=== PATIENT | female | born 2000 | race Caucasian/White ===

== ENCOUNTER 2020-03-17 08:41 | Emergency (ER) | payer SELFPAY ==
[2020-03-17] MEDS ORDERED: AZITHROMYCIN 250 MG TAB ONE ×2 (09:52→09:53)
[2020-03-17] MEDS ORDERED: LIDOCAINE 1% MPF 5 ML VIAL ONE (09:52)
[2020-03-17] MEDS ORDERED: CEFTRIAXONE 250 MG/VIAL ONE (09:52)
[2020-03-17 09:53] LABS: Urine Blood NEGATIVE (NEG); Urine Glucose NEGATIVE (NEG); Urine Protein 1+ (NEG); Urine pH 8.5 (5.0-7.0)
--- NOTE | 2020-03-17 10:21 | ER ---
Nurse's Notes [facility] Name: Christine Montalvo Age: 19 yrs Sex: Female : 2000 Arrival Date: 03/17/2020 Time: 08:45 Bed 6 Private MD: Diagnosis: Herpesviral infection, unspecified;Sexually transmitted chlamydial infection of other sites Presentation: 03/17 09:09 Chief complaint: Patient states: HSV outbreak and ran out of meds. Coronavirus screen: iw At this time, the client does not indicate any symptoms associated with coronavirus-19. Ebola Screen: Patient negative for fever greater than or equal to 101.5 degrees Fahrenheit, and additional compatible Ebola Virus Disease symptoms Patient denies exposure to infectious person. Patient denies travel to an Ebola-affected area in the 21 days before illness onset. No symptoms or risks identified at this time. Initial Sepsis Screen: Does the patient meet any 2 criteria? No. Patient's initial sepsis screen is negative. Does the patient have a suspected source of infection? No. Patient's initial sepsis screen is negative. Risk Assessment: Do you want to hurt yourself or someone else? Patient reports no desire to harm self or others. 09:09 Method Of Arrival: Ambulatory iw 09:09 Acuity: VINICIO 4 iw 09:15 Onset of symptoms was March 17, 2020. iw Triage Assessment: 09:40 General: Behavior is calm. iw 10:33 General: Appears in no apparent distress. 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 - Social history:: Smoking status: . Screenin:13 Abuse screen: Denies threats or abuse. Denies injuries from another. Nutritional iw screening: No deficits noted. Tuberculosis screening: No symptoms or risk factors identified. Fall Risk None identified. Assessment: 09:45 General: Appears in no apparent distress. Behavior is calm, cooperative. Pain: iw Complains of pain in groin. Neuro: Level of Consciousness is awake, alert, obeys commands, Oriented to person, place, time, situation, Moves all extremities. Full function. Cardiovascular: Respiratory: Respiratory effort is even, unlabored, Respiratory pattern is regular. Derm: Skin is intact, is healthy with good turgor. Musculoskeletal: Range of motion: intact in all extremities. 10:13 Reassessment: Patient appears in no apparent distress at this time. Patient and/or iw family updated on plan of care and expected duration. Pain level reassessed. Patient is alert, oriented x 3, equal unlabored respirations, skin warm/dry/pink. waiting for urine micro and wet prep results. Vital Signs: 09:36 BP 107 / 84; Pulse 86; Resp 16; Temp 98.2; Pulse Ox 98% on R/A; iw ED Course: 08:45 Patient arrived in ED. as 08:50 Andrews Perla PA is PHCP. jr8 08:50 Lopez Klein MD is Attending Physician. jr8 09:10 Triage completed. iw 09:35 Mariia Max, RN is Primary Nurse. iw 09:35 Wet Prep Sent. iw 09:35 GC (GONORR/CHLAMYDIA) Probe Sent. iw 09:36 Assist provider with pelvic exam: Set up pelvic tray. Performed by Andrews ESTRELLA iw Specimens sent to lab. 09:36 Arm band placed on. iw 09:45 Patient has correct armband on for positive identification. iw 10:32 Patient did not have IV access during this emergency room visit. iw Administered Medications: 09:45 Drug: Rocephin (cefTRIAXone) 250 mg Route: IM; Site: right deltoid; iw 10:30 Follow up: Response: No adverse reaction iw 09:45 Drug: Zithromax 1 grams Route: PO; iw 10:30 Follow up: Response: No adverse reaction iw 10:34 Drug: Valtrex 1000 mg Route: PO; iw 10:35 Follow up: Response: No adverse reaction iw Outcome: 10:20 Discharge ordered by . jr8 10:33 Discharged to home ambulatory. iw 10:33 Condition: good 10:33 Discharge instructions given to patient, Instructed on discharge instructions, follow up and referral plans. Demonstrated understanding of instructions, follow-up care, medications, Prescriptions given X 1. 10:34 Patient left the ED. iw Signatures: Marian Earl as Mariia Max, RN RN iw Andrews Perla PA PA jrThor
--- NOTE | 2020-03-17 10:21 | EDPHYS ---
Physician Documentation [facility] Name: Christine Montalvo Age: 19 yrs Sex: Female : 2000 Arrival Date: 03/17/2020 Time: 08:45 Bed 6 Private MD: ED Physician Lopez Klein HPI: 03/17 10:16 This 19 yrs old Female presents to ER via Ambulatory with complaints of jr8 Vaginal Problem. 10:16 The patient presents with pelvic pain, vaginal discharge. Onset: The symptoms/episode jr8 began/occurred gradually, 2 day(s) ago. Modifying factors: The symptoms are alleviated by nothing, the symptoms are aggravated by movement. Associated signs and symptoms: The patient has no apparent associated signs or symptoms. Severity of symptoms: At their worst the symptoms were mild, in the emergency department the symptoms are unchanged. It is unknown whether or not the patient has had similar symptoms in the past. The patient has not recently seen a physician. Patient stated that she has history of HSV. Has been out of her meds and has been stressed as of lately. Stated that she started to break out. More painful then normal. Also noted slight discharge this morning . 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 - Social history:: Smoking status: . ROS: 10:16 Eyes: Negative for injury, pain, redness, and discharge, ENT: Negative for injury, jr8 pain, and discharge, Neck: Negative for injury, pain, and swelling, Cardiovascular: Negative for chest pain, palpitations, and edema, Respiratory: Negative for shortness of breath, cough, wheezing, and pleuritic chest pain, Abdomen/GI: Negative for abdominal pain, nausea, vomiting, diarrhea, and constipation, Back: Negative for injury and pain, MS/Extremity: Negative for injury and deformity, Skin: Negative for injury, rash, and discoloration, Neuro: Negative for headache, weakness, numbness, tingling, and seizure. 10:16 : Positive for pelvic pain, vaginal discharge, Negative for urinary symptoms. Exam: 10:16 Constitutional: This is a well developed, well nourished patient who is awake, alert, jr8 and in no acute distress. Cardiovascular: Regular rate and rhythm with a normal S1 and S2. No gallops, murmurs, or rubs. Normal PMI, no JVD. No pulse deficits. Respiratory: Lungs have equal breath sounds bilaterally, clear to auscultation and percussion. No rales, rhonchi or wheezes noted. No increased work of breathing, no retractions or nasal flaring. Abdomen/GI: Soft, non-tender, with normal bowel sounds. No distension or tympany. No guarding or rebound. No evidence of tenderness throughout. Skin: Warm, dry with normal turgor. Normal color with no rashes, no lesions, and no evidence of cellulitis. MS/ Extremity: Pulses equal, no cyanosis. Neurovascular intact. Full, normal range of motion. Neuro: Awake and alert, GCS 15, oriented to person, place, time, and situation. Cranial nerves II-XII grossly intact. Motor strength 5/5 in all extremities. Sensory grossly intact. Cerebellar exam normal. Normal gait. 10:16 : CVA tenderness, is absent, Pelvic Exam: External exam: herpes lesions noted, Speculum exam: no cervicitis, os that is closed, no tissue in cervix is seen, discharge, white, the nurse was present for the exam. Vital Signs: 09:36 BP 107 / 84; Pulse 86; Resp 16; Temp 98.2; Pulse Ox 98% on R/A; iw MDM: 08:50 Patient medically screened. [facility] 10:16 Data reviewed: vital signs, nurses notes, and as a result, I will discharge patient. [facility] Data interpreted: Pulse oximetry: on room air is 98 %. Interpretation: normal. Counseling: I had a detailed discussion with the patient and/or guardian regarding: the historical points, exam findings, and any diagnostic results supporting the discharge/admit diagnosis, lab results, the need for outpatient follow up, a family practitioner, to return to the emergency department if symptoms worsen or persist or if there are any questions or concerns that arise at home. 03/17 09:29 Order name: GC (GONORR/CHLAMYDIA) Probe [facility] 03/17 09:29 Order name: Wet Prep [facility] 03/17 09:29 Order name: Urine Dipstick--Ancillary (enter results) eb 03/17 09:29 Order name: Urine --Ancillary (enter results) eb 03/17 09:38 Order name: Urine Microscopic Only [facility] 03/17 09:54 Order name: Urine --Ancillary; Complete Time: 09:58 EDMS 03/17 09:29 Order name: Urine Test (obtain specimen); Complete Time: 09:35 8 03/17 09:29 Order name: Urine Dipstick-Ancillary (obtain specimen); Complete Time: 09:35 8 03/17 09:54 Order name: Urine Dipstick-Ancillary; Complete Time: 09:58 EDMS 03/17 10:14 Order name: Wet Prep; Complete Time: 10:16 EDMS Administered Medications: 09:45 Drug: Rocephin (cefTRIAXone) 250 mg Route: IM; Site: right deltoid; iw 10:30 Follow up: Response: No adverse reaction iw 09:45 Drug: Zithromax 1 grams Route: PO; iw 10:30 Follow up: Response: No adverse reaction iw 10:34 Drug: Valtrex 1000 mg Route: PO; iw 10:35 Follow up: Response: No adverse reaction iw Disposition: 11:35 Co-signature as Attending Physician, Lopez Klein MD. rn Disposition: 03/17/20 10:20 Discharged to Home. Impression: Herpesviral infection, unspecified, Sexually transmitted chlamydial infection of other sites. - Condition is Stable. - Discharge Instructions: Chlamydia, Female, Genital Herpes, Sexually Transmitted Disease. - Prescriptions for Valtrex 1 g Oral Tablet - take 1 tablet by ORAL route every 12 hours for 7 days; 14 tablet. - Medication Reconciliation Form, Thank You Letter, Antibiotic Education, Prescription Opioid Use form. - Follow up: Private Physician; When: As needed; Reason: Recheck today's complaints, Continuance of care, Re-evaluation by your physician. - Problem is new. - Symptoms have improved. Signatures: Dispatcher [employer] Mariia Rizzo RN RN iw Nieto, Roman, MD MD rn Roszak, Josh, PA PA jr8 Corrections: (The following items were deleted from the chart) 10:34 10:20 03/17/2020 10:20 Discharged to Home. Impression: Herpesviral infection, iw unspecified; Sexually transmitted chlamydial infection of other sites. Condition is Stable. Forms are Medication Reconciliation Form, Thank You Letter, Antibiotic Education, Prescription Opioid Use. Follow up: Private Physician; When: As needed; Reason: Recheck today's complaints, Continuance of care, Re-evaluation by your physician. Problem is new. Symptoms have improved. jr8
[2020-03-17 10:35] LABS: Urine Bacteria <20 /HPF (<20); Urine Culture Reflex Order NOT NEEDED; Urine RBC NONE SEEN /HPF (NONE SEEN)
[2020-03-17 10:40] VITALS: BP 107/84; TEMP 98.2; O2SAT 98
[2020-03-17] MEDS ORDERED: VALACYCLOVIR 500 MG TAB ONE (10:42)
== END 2020-03-17 10:34 | disposition home or self-care (01) ==
LOC: ER 08:41
DX: B00.9 Herpesviral infection, unspecified (principal); A56.8 Sexually transmitted chlamydial infection of other sites
CPT/HCPCS: 81003; 81015; 81025; 87210; 87490; 87590; 96372; 99284; J0696

== ENCOUNTER 2020-03-26 16:03 | Emergency (ER) | payer SELFPAY ==
--- OUTSIDE RECORDS SUMMARY | 2020-03-26 16:06 | XMS REPORT | Continuity of Care Document ---
:2000 Author Organization [employer] Care Team Providers Name Role Phone [employer] Unavailable Un available Problems Problem Status Onset Classification Date Comments Sourc e Date Reported Suicide 09/23/2019 The attempt, [address] [place] initial encounter OD, SI Active The [place] [address] DEHYDRATION Active [address] Medications Medication Details Route Status Patient Ordering Order Source Instructions Provider Date Sodium 1,000 mL, Inactive MH The Chloride 0.9% 1000 020 [place] ([place]) IV ml/hr, Infuse Over: 1 hr, Route: IV, 1,000, Drug form: INJ, ONCE, Priority: STAT, Dosing Weight 50 kg, Start date: 09/20/19 19:08:00 [employer]UMAN [employer]OURCES ADMIN, Stop date: 09/20/19 19:08:00 HUMAN RESOURCES ADMIN, 0 Allergies, Adverse Reactions, Alerts Substance Category Reaction Severity Reaction Status Date Comments S ource type Reported No Known Assertion Drug MH Th e Medication allergy [place] [facility] Allergies Immunizations No Data Provided for This Section Results Order Name Results Value Reference Date Interpretation Comments Selina rce Range DRUG SCREEN U Amph Scr Negative Negative 09/21 MH The *NA* [place] (09/20/19 8:42 PM) DRUG SCREEN U Lupe Scr Negative Negative 09/21 MH The *NA* [place] (09/20/19 8:42 PM) DRUG SCREEN U Benzodiaz Positive Negative 09/21 MH The Scr *ABN* [place] (09/20/19 8:42 PM) DRUG SCREEN U Cocaine Positive Negative 09/21 MH The Scr *ABN* [place] (09/20/19 8:42 PM) DRUG SCREEN U Cannab Scr Positive Negative 09/21 MH Th e *ABN* [place] (09/20/19 8:42 PM) DRUG SCREEN U Opiate Scr Negative Negative 09/21 MH Th e *NA* [place] (09/20/19 8:42 PM) DRUG SCREEN U Negative Negative 09/21 The Phencyclidin *NA* /2019 [place] e Scr (09/20/19 8:42 PM) DRUG SCREEN UDS Note See Note 09/21 MH The (09/20/19 8:42 PM) [facility] nds URINE AND UA Turbidity Clear Clear 09/21 The STOOL (09/20/19 8:42 PM) /2019 [facility] nds URINE AND UA Spec Grav 1.017 <=1.030 09/21 The STOOL /[place] URINE AND UA pH 6.0 5.0 - 8.0 09/21 The STOOL /2019[place] URINE AND UA Protein Negative Negative 09/21 The STOOL mg/dL mg/dL [place] URINE AND UA Glucose Negative Negative 09/21 The STOOL mg/dL mg/dL lands URINE AND UA Ketones Negative Negative 09/21 The STOOL mg/dL mg/dL [place] URINE AND UA Bili Negative Negative 09/21 The STOOL *NA* /2019 [place] (09/20/19 8:42 PM) URINE AND UA Blood Negative Negative 09/21 The STOOL (09/20/19 8:42 PM) /2019 [facility] nds URINE AND UA Nitrite Negative Negative 09/21 The STOOL (09/20/19 8:42 PM) /2019 [facility] nds URINE AND UA Leuk Est Negative Negative 09/21 The STOOL (09/20/19 8:42 PM) /2019 [facility] nds URINE AND UA Sq Epi Few /LPF Few /LPF 09/21 The STOOL [place] URINE AND UA WBC 1 0 - 5 09/21 The STOOL /2019 [place] URINE AND UA Mucus Few /LPF None Seen 09/21 The STOOL /LPF /[place] URINE AND UA Color YELLOW 09/21 The STOOL [place] URINE AND UA <=1.0 0.1 - 1.0 09/21 MH The STOOL Urobilinogen mg/dL [place] CHEM PANEL Glucose Lvl 86 70 - 99 09/21 The [place] CHEM PANEL BUN 11 7 - 22 09/21 The [place] CHEM PANEL Creatinine 1.06 0.50 - 09/21 MH The Lvl 1.40 /2019 [facility] CHEM PANEL Sodium Lvl 140 135 - 145 02/12 The [facility] CHEM PANEL Potassium 3.5 3.5 - 5.1 02/12 MH The Lvl /2019 [facility] CHEM PANEL Chloride Lvl 107 95 - 109 02/12 The /2019 [place] CHEM PANEL CO2 29 24 - 32 02/12 The /2019 [facility] CHEM PANEL Calcium Lvl 9.3 8.5 - 10.5 02/12 The [facility] CHEM PANEL Total 8.8 6.4 - 8.4 02/12 The Protein /2019 [facility] CHEM PANEL Albumin Lvl 5.0 3.5 - 5.0 02/12 MH The [facility] CHEM PANEL ALT 17 0 - 65 02/12 The [facility] CHEM PANEL AST 17 0 - 37 02/12 The [facility] CHEM PANEL Alk Phos 80 39 - 136 02/12 MH The [facility] CHEM PANEL Bili Total 0.7 0.2 - 1.3 02/12 The [place] CHEM PANEL AGAP 7.5 10.0 - 02/12 The 20.0 [facility] CHEM PANEL B/C Ratio 10 6 - 25 02/12 MH The [facility] CHEM PANEL Globulin 3.8 2.7 - 4.2 02/12 MH The [facility] CHEM PANEL A/G Ratio 1.3 0.7 - 1.6 02/12 MH The [facility] CHEM PANEL eGFR 76 02/12 [facility] The Comment: [place] eGFR is calculated using the CKD-EPI formula. In most young, healthy individuals the eGFR will be >90 mL/min/1.73m2 . The eGFR declines with age. An eGFR of 60-89 may be normal in some populations, particularly the elderly, for whom the CKD-EPI formula has not been extensively validated. Use of the eGFR is not recommended in the following populations:< br/>
Nuzhat viduals with unstable creatinine concentration s, including patients and those with serious co-morbid conditions.<b r/>
Patie nts with extremes in muscle mass or diet.

The data above are obtained from the National Kidney Disease Education Program (NKDEP) which additionally recommends that when the eGFR is used in patients with extremes of body mass index for purposes of drug dosing, the eGFR should be multiplied by the estimated BMI. CHEM PANEL Lipase Lvl 87 73 - 393 02/12 MH The [place] CHEM PANEL Bili Direct 0.2 0.0 - 0.3 02/12 MH The [place] HEMATOLOGY WBC 8.1 3.7 - 10.4 02/12 MH The [place] HEMATOLOGY RBC 5.48 4.20 - 02/12 MH The 5.40 /2019 [place] HEMATOLOGY Hgb 16.0 12.0 - 02/12 MH The 16.0 [place] HEMATOLOGY Hct 46.7 36.0 - 02/12 MH The 48.0 [place] HEMATOLOGY MCV 85.2 80.0 - 02/12 MH The 98.0 [place] HEMATOLOGY MCH 29.2 27.0 - 02/12 MH The 31.0 [place] HEMATOLOGY MCHC 34.3 32.0 - 02/12 MH The 36.0 [place] HEMATOLOGY RDW 12.4 11.5 - 02/12 MH The 14.5 [place] HEMATOLOGY Platelet 189 133 - 450 02/12 MH The [place] HEMATOLOGY MPV 10.2 7.4 - 10.4 02/12 MH The [place] HEMATOLOGY Segs 55.8 45.0 - 02/12 MH The 75.0 [place] HEMATOLOGY Lymphocytes 36.8 20.0 - 02/12 MH The 40.0 [place] HEMATOLOGY Monocytes 5.7 2.0 - 12.0 02/12 MH The [place] HEMATOLOGY Eosinophils 1.1 0.0 - 4.0 02/12 MH The [place] HEMATOLOGY Basophils 0.6 0.0 - 1.0 02/12 MH The [place] HEMATOLOGY Neutrophils 4.5 1.5 - 8.1 02/12 MH The # [place] HEMATOLOGY Lymphocytes 3.0 1.0 - 5.5 02/12 MH The # [place] HEMATOLOGY Monocytes # 0.5 0.0 - 0.8 02/12 MH The [place] HEMATOLOGY Eosinophils 0.1 0.0 - 0.5 02/12 MH The # [place] HEMATOLOGY Basophils # 0.1 0.0 - 0.2 02/12 MH The [place] TOXICOLOGY Acetaminoph <2 10 - 20 02/12 MH The Lvl /2019 [place] TOXICOLOGY Ethanol Lvl <3 09/21 [place] TOXICOLOGY Etoh (%) <0.003 09/21 [place] TOXICOLOGY Salicylate 2.1 0.0 - 30.0 09/21 The Lvl [place] URINE CHEM U Preg Negative Negative 02/10 [facility] (02/10/19 5:57 PM) /[facility] Pathology Reports No Data Provided for This Section Diagnostic Reports Report Value Date Source Chest 1view DX PROCEDURE INFORMATION: 09/20/2019 [facility] Exam: XR Chest, 1 View Exam date and time: 09/20/2019 7:35 PM Age: 18 years old Clinical indication: Screening exam; Additional info: /benzo od TECHNIQUE: Imaging protocol: XR of the chest Views: 1 view. COMPARISON: No relevant prior studies available. FINDINGS: Lungs: Clear. No consolidation. Pleural space: No pleural effusion. No pneumotho rax. Heart/Mediastinum: Contours within normal limits . Bones/joints: No acute osseous process. IMPRESSION: No radiographically identified acute cardiopulmo nary findings. Irvin Myers MD On 09/20/2019 20:04:27; [id number] Consultation Notes No Data Provided for This Section Discharge Summaries No Data Provided for This Section History and Physicals No Data Provided for This Section Vital Signs Vital Sign Value Date Comments Source Respitory Rate 29 09/21/2019 The [facility] nds Systolic (mm Hg) 104 09/21/2019 [facility] Diastolic (mm Hg) 63 09/21/2019 [facility] Respitory Rate 18 09/21/2019 The [facility] nds Systolic (mm Hg) 103 09/21/2019 [facility] [place] Diastolic (mm Hg) 74 09/21/2019 [facility] [place] Respitory Rate 19 09/21/2019 [facility] nds Systolic (mm Hg) 100 09/21/2019 [facility] [place] Diastolic (mm Hg) 69 09/21/2019 [facility] Heart Rate 60 09/21/[address] [facility] Heart Rate 70 09/21/[address] [facility] Temperature Oral (F) 98.3 F 09/21/2019 [facility] Height 154.94 cm 09/21/2019 [facility] [place] BMI Calculated 20.83 09/21/2019 [facility] Weight 50 09/21/2019 [facility] Systolic (mm Hg) 105 02/10/2019 [facility] dical [place] Diastolic (mm Hg) 67 02/10/[address] [facility] edical [place] Heart Rate 77 02/10/2019 [facility] Respitory Rate 20 02/10/2019 [facility] Temperature Oral (F) 97.9 F 02/10/2019 [facility] Height 157.48 cm 02/10/2019 [facility] [place] BMI Calculated 20.16 02/10/2019 [facility] kylah [place] Weight 50 02/10/2019 [facility] Respitory Rate 20 02/10/2019 [facility] Systolic (mm Hg) 127 02/10/2019 [facility] [place] Diastolic (mm Hg) 112 02/10/[facility] [place] [facility] 105 [facility]10[facility] Encounters Location Location Encounter Encounter Reason Attending ADM LA Stat us Source Details Type Number For Provider Date Date [facility] [id number] It[facility] 02[facility]10 02/[facility] [id number] Eric 09/21 09/21 [facility] /2019 [facility] Procedures No Data Provided for This Section Assessment and Plan No Data Provided for This Section Plan of Care No Data Provided for This Section Social History Social History Date Source Social History TypeResponse 09/21/2019 [facility] Alcohol Current, Type Beer, Liquor. Frequency: 1-2 times per week. Substance Abuse Use: Current. Type: Marijuana. Recreational Drug Route: In haled. Smoking Status Never smoker; Type: Cigarettes; Exposure to Tobacco Smoke None; Cigarette Smoking Last 365 Days No; Reg Smoking Cessation Counseling No entered on: 09/20/19 Social History TypeResponse 02/10/2019 [facility] Smoking Status Never smoker; Type: Cigarettes; Exposure to Tobacco Smoke None; Cigarette Smoking Last 365 Days No; Reg Smoking Cessation Counseling No entered on: 02/10/19 Family History No Data Provided for This Section Advance Directives No Data Provided for This Section Functional Status No Data Provided for This Section
--- OUTSIDE RECORDS SUMMARY | 2020-03-26 16:07 | XMS REPORT | Continuity of Care Document ---
:2000 Author Organization [facility] t Address [address] [place] [address] Care Team Providers Name Role Phone Lopez Aleman Attending Clinician Roxana Blackman Attending Clinician Payers Payer Name Policy Type Policy Number Effective Date Expiration Date S ource Problems Condition Condition Condition Status Onset Resolution Last Treating Co mments Source Name Details Category Date Date Treatment Clinician Date OD, SI Diagnosis Active 2019-10-04 Mem oria 09-20 20:06:00 l OD, SI 00:00: Maikol 00 Active 09/20/2019 [facility] DEHYDRATIO Diagnosis Active 2019-02-10 Memoria N 02-10 18:26:00 l 00:00: Levasy DEHYDRATIO 00 N Active 02/10/2019 [facility] Suicide Problem 2019-09-23 2019-09-23 Memoria attempt, 2- 22:04:08 22:04:08 l initial Suicide 18:00: Kane n encounter attempt, 00 initial encounter 09/21/2019 09/23/2019 [facility] Syncope Problem 2019-02-12 2019-02-12 Memoria and 02-10 21:55:59 21:55:59 l collapse Syncope 17:00: Nikki nn and 00 collapse 9 02/12/2019 [facility] Allergies, Adverse Reactions, Alerts Allergy Allergy Status Severity Reaction(s) Onset Inactive Treating Comm ents Source Name Type Date Date Clinician No Known DA Active [facility] Allergie 6 Pozo s 00:00: [facility] 00 are Lovely No Known No Known Active Memori a [facility] Medicati l on on Maikol Allergie Allergie s s Social History Social Habit Start Date Stop Date Quantity Comments Source Social History 2019-09-21 2019-09-21 [facility] 01:48:33 01:48:33 Smoking Status Start Date Stop Date Source Social History [facility] Medications Ordered Filled Start Stop Current Ordering Indication Dosage Frequency Signature Comments Components Source Medication Medication Date Date Medication? Clinician (SIG) Name Name Sodium No 1,000 mL, Memori a Chloride 2-12 1000 l 0.9% 01:08: ml/hr, Maikol (Bolus) IV 00 Infuse Over: 1 hr, Route: IV, 1,000, Drug form: INJ, ONCE, Priority: STAT, Dosing Weight 50 kg, Start date: 09/20/19 19:08:00 C.O.D. CLERK, Stop date: 09/20/19 19:08:00 C.O.D. CLERK, 0 Vital Signs Vital Name Observation Time Observation Value Comments Source Respitory Rate 2019-09-21 06:22:00 Memori al Maikol Systolic (mm Hg) 2019-09-21 06:22:00 Pierre rial Levasy Diastolic (mm Hg) 2019-09-21 06:22:00 Mem orial Levasy Respitory Rate 2019-09-21 05:17:00 Memori al Levasy Systolic (mm Hg) 2019-09-21 05:17:00 Pierre rial Maikol Diastolic (mm Hg) 2019-09-21 05:17:00 Mem orial Maikol Respitory Rate 2019-09-21 03:56:00 Memori al Levasy Systolic (mm Hg) 2019-09-21 03:56:00 Pierre rial Levasy Diastolic (mm Hg) 2019-09-21 03:56:00 Mem orial Levasy Heart Rate 2019-09-21 01:46:00 [facility] Maikol Heart Rate 2019-09-21 00:54:00 [facility] Temperature Oral (F) 2019-09-21 00:54:00 98.3 F [facility] Levasy Height 2019-09-21 00:54:00 154.94 cm [facility] Maikol BMI Calculated 2019-09-21 00:54:00 Memori al Maikol Weight 2019-09-21 00:54:00 [facility] [place] Systolic (mm Hg) 2019-02-10 23:49:00 Pierre rial Maikol Diastolic (mm Hg) 2019-02-10 23:49:00 Mem orial Maikol Heart Rate 2019-02-10 23:49:00 [facility] Ma[facility] Respitory Rate 2019-02-10 23:49:00 Memori al Levasy Temperature Oral (F) 2019-02-10 23:49:00 97.9 F [facility] Levasy Height 2019-02-10 22:37:00 157.48 cm [facility] Ma[facility]ol BMI Calculated 2019-02-10 22:37:00 Memori al Levasy Weight 2019-02-10 22:37:00 [facility] Levasy Respitory Rate 2019-02-10 22:37:00 Memori al Levasy Systolic (mm Hg) 2019-02-10 22:37:00 Pierre rial Levasy Diastolic (mm Hg) 2019-02-10 22:37:00 Mem orial Levasy Heart Rate 2019-02-10 22:37:00 [facility] Procedures This patient has no known procedures. Encounters Start End Encounter Admission Attending Care Care Encounter Source Date/Time Date/Time Type Type Clinicians Facility Department ID 2019-09-20 2019-09-21 Outpatient [facility] [place] [id number] 18:50:43 03:04:00 Eric 2019-09-20 2019-09-20 Emergency E [facility] [id number] [facility] 18:50:00 18:50:00 2019-02-10 2019-02-10 Outpatient Yehuda MILENA [facility] [id number] 17:33:26 19:08:00 Itzel Schmidt 00 2019-02-10 2019-02-10 Emergency E [facility] [address] [facility] 17:33:00 17:33:00 Results Test Description Test Time Test Comments Results Result Sour e Comments - XR FOREARM 2 2020-01-13 Patient Name: VIEWS RT 13:08:00 LISET RAZO Unit No: [id number] EXAMS: CPT: [id number] XR [place] [address] [place] [address] RIGHT FOREARM, 2 VIEWS: HISTORY: fall and forearm pain FINDINGS: No bony or joint abnormality study. No acute fracture or dislocation, lytic, or blastic lesion is seen. IMPRESSION: Normal right forearm. at 1308 Reported and signed by: Levi Melchor MD CC: Ines Catherine MD Technologist: Asaf Bautista Time: DAP (Gy m2): Air Kerma (mGy): Trscr Dt/Tm: 01/13/2020 (1308) by:[email or web address] Orig Print D/T: S: 01/13/2020 (5941) BATCH NO: N/A Name: LISET RAZO [facility] Sonam Phys: Ines Marie [address] : 2000 Age: 19 Sex: F [place] Loc: [facility] Exam Date: 01/13/2020 Status: REG ER PH: FAX: PAGE 1 Signed Report DRUG SCREEN 2019-09-21 Negative [facility] 02:42:00 *NA*(09/20/19 8:42 Levasy PM) DRUG SCREEN 2019-09-21 Negative [facility] 02:42:00 *NA*(09/20/19 8:42 Levasy PM) DRUG SCREEN 2019-09-21 Positive [facility] 02:42:00 *ABN*(09/20/19 8:42 Kane n PM) DRUG SCREEN 2019-09-21 Positive [facility] 02:42:00 *ABN*(09/20/19 8:42 Kane n PM) DRUG SCREEN 2019-09-21 Positive [facility] 02:42:00 *ABN*(09/20/19 8:42 Kane n PM) DRUG SCREEN 2019-09-21 Negative [facility] 02:42:00 *NA*(09/20/19 8:42 Maikol PM) DRUG SCREEN 2019-09-21 Negative [facility] 02:42:00 *NA*(09/20/19 8:42 Maikol PM) DRUG SCREEN 2019-09-21 See Note (09/20/19 Memori al 02:42:00 8:42 PM) Levasy URINE AND STOOL 2019-09-21 Clear (09/20/19 8:42 Memorial 02:42:00 PM) Maikol URINE AND STOOL 2019-09-21 02:42:00 Test Item Value Reference Range Interpretation Comme nts UA Spec Grav (test code = UA Spec Grav) 1.017 1 [facility] [id number] 02:42:00 Test Item Value Reference Range Interpretation Comments UA pH (test code = UA pH) 6.0 1 5.0-8.0 [facility] [id number] 02:42:00Negative *NA*(09/20/19 8:42 PM) [facility] [id number] 02:42:00Negative (09/20/19 8:42 PM) [facility] [id number] 02:42:00Negative (09/20/19 8:42 PM) [facility] [id number] 02:42:00Negative (09/20/19 8:42 PM) [facility] [id number] 02:42:001[facility] PANEL 2019-09-21 01:39:0086[facility] [id number] 01:39:0011[facility] [id number] 01:39:001.06[facility] [id number] 01:39:05728Lktnhnef HermannCHEM FLWYK0912-32-14 01:39:003.5[facility]ann[facility] NZKIE6748-83-37 01:39:57563Exhaoggo HermannCHEM IZBPL8903-23-14 01:39:0029 [facility] [id number] 01:39:009.3[facility]annCHE[facility] PANEL 2019-09-21 01:39:008.8[facility] [id number] 01:39:005.0[facility] [id number] 01:39:0017[facility] [id number] 01:39:0017[facility] LHOVX1357-17-55 01:39:0080[facility] CWXRP5831-50-76 01:39:000.7[facility] BPMVT4405-50-77 01:39:007.5 [facility] [id number] 01:39:00 Test Item Value Reference Range Interpretation Comments B/C Ratio (test code = B/C Ratio) 10 1 6-25 [facility] [id number] 01:39:003.8[facility]annCHE[facility] PANEL 2019-09-21 01:39:00 Test Item Value Reference Range Interpretation Comments A/G Ratio (test code = A/G Ratio) 1.3 1 0.7-1.6 [facility] [id number] 01:39:0076[facility]annCHE[facility] PANEL 2019-09-21 01:39:0087[facility]annCHE[facility] [id number] 01:39:000.2[facility] CqpxntfVEGSWDGOCH6992-75-91 01:39:008.1[facility] LkcrkerEPTQUPDJMW4648-63-92 01:39:005.48[facility] LxobizaZWAXNCEKMP8548-07-22 01:39:0016.0[facility] Levasy XVJGDOVANQ6227-87-40 01:39:0046.7[facility] EaefgrhEHTOBQLXKI1931-62-72 01:39:00 85.2[facility] QixrvvvXCXBMAIVCV7424-12-59 01:39:00 Test Item Value Reference Range Interpretation Comments MCH (test code = MCH) 29.2 pg 27.0-31.0 [facility] SukeyowMIJAVREUUN6234-57-48 01:39:0034.3[facility]annHEMATOLOGY 2019-09-21 01:39:0012.4[facility] VgbvnmqSEQJHMMNQF9947-59-90 01:39:23120Fojhckbj BomhovyWTSIFNLZFG6718-73-61 01:39:0010.2[facility] LupinaxXWIKZBOLTU5894-25-06 01:39:0055.8[facility] RmkwaqhENIWPJGEFX1640-63-73 01:39:0036.8[facility] Levasy EDHRQCZUPO7957-36-48 01:39:005.7[facility] CjcegjbNQEQJDLRUP2226-26-24 01:39:001.1 [facility] OtahjthNCSSUVTPXM1646-31-36 01:39:000.6[facility] HermannHEMATOLOGY 2019-09-21 01:39:004.5[facility] JuxtmtmKQGEPDGAJB3503-72-89 01:39:003.0[facility] ZqzwmuiIPGHOEVDSR1799-55-56 01:39:000.5[facility] JdyzkdiIGJCGQOWML3152-31-25 01:39:000.1[facility] VtdxodwVFICMRIROF2410-45-71 01:39:000.1[facility] Levasy ZFUEHIFSRY0957-85-11 01:39:00<2[facility] DdgdabfVWNLMWHYWV3757-59-52 01:39:00 <3[facility] JigcvhnJLNLOGTLYV7372-94-94 01:39:00<0.003[facility] Levasy KEQVSXODJR2885-75-45 01:39:002.1[facility] [id number] 22:57:00 Negative (02/10/19 5:57 PM)Ciera Lassiter
[2020-03-26 18:11] LABS: Urine Blood TRACE (NEG); Urine Glucose NEGATIVE (NEG); Urine Protein 1+ (NEG); Urine pH 6.5 (5.0-7.0)
--- NOTE | 2020-03-26 19:00 | EDPHYS ---
Physician Documentation [facility] Name: Christine Montalvo Age: 19 yrs Sex: Female : 2000 Arrival Date: 03/26/2020 Time: 16:07 Bed 18 Private MD: ED Physician Lopez Klein HPI: 03/26 19:03 This 19 yrs old Female presents to ER via Ambulatory with complaints of jr8 Urinary Problem. 19:03 The patient presents with pelvic pain, urinary symptoms. Onset: The symptoms/episode jr8 began/occurred gradually. Modifying factors: The symptoms are alleviated by nothing, the symptoms are aggravated by movement, urinating. Associated signs and symptoms: The patient has no apparent associated signs or symptoms. Severity of symptoms: At their worst the symptoms were mild, in the emergency department the symptoms are unchanged. The patient has not experienced similar symptoms in the past. The patient has been recently seen by a physician:. Patient seen here last week and put on Valtrex for herpetic outbreak. Seen at urgent care also and put on Abx for suspected UTI. Stated that she is still having some burning in vaginal region and with urinating . 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 - Social history:: Smoking status: Patient denies any tobacco usage or history of. ROS: 19:03 Eyes: Negative for injury, pain, redness, and discharge, ENT: Negative for injury, jr8 pain, and discharge, Neck: Negative for injury, pain, and swelling, Cardiovascular: Negative for chest pain, palpitations, and edema, Respiratory: Negative for shortness of breath, cough, wheezing, and pleuritic chest pain, Abdomen/GI: Negative for abdominal pain, nausea, vomiting, diarrhea, and constipation, Back: Negative for injury and pain, MS/Extremity: Negative for injury and deformity, Skin: Negative for injury, rash, and discoloration, Neuro: Negative for headache, weakness, numbness, tingling, and seizure. 19:03 : Positive for urinary symptoms, pelvic pain. Exam: 19:03 Constitutional: This is a well developed, well nourished patient who is awake, alert, jr8 and in no acute distress. Cardiovascular: Regular rate and rhythm with a normal S1 and S2. No gallops, murmurs, or rubs. Normal PMI, no JVD. No pulse deficits. Respiratory: Lungs have equal breath sounds bilaterally, clear to auscultation and percussion. No rales, rhonchi or wheezes noted. No increased work of breathing, no retractions or nasal flaring. Abdomen/GI: Soft, non-tender, with normal bowel sounds. No distension or tympany. No guarding or rebound. No evidence of tenderness throughout. Back: No spinal tenderness. No costovertebral tenderness. Full range of motion. Skin: Warm, dry with normal turgor. Normal color with no rashes, no lesions, and no evidence of cellulitis. MS/ Extremity: Pulses equal, no cyanosis. Neurovascular intact. Full, normal range of motion. Neuro: Awake and alert, GCS 15, oriented to person, place, time, and situation. Cranial nerves II-XII grossly intact. Motor strength 5/5 in all extremities. Sensory grossly intact. Cerebellar exam normal. Normal gait. 19:03 : CVA tenderness, is absent, Pelvic Exam: External exam: herpes lesions noted, no appreciated Bartholin's cyst, no erythema, not excoriated, no evidence of foreign body, no warts seen, clitoral castro region, the nurse was present for the exam. Vital Signs: 16:32 BP 114 / 81; Pulse 77; Resp 15 S; Temp 98.5(O); Pulse Ox 100% on R/A; Weight 45.36 kg ca1 (R); Height 5 ft. (152.40 cm) (R); 16:32 Body Mass Index 19.53 (45.36 kg, 152.40 cm) ca1 MDM: 17:40 Patient medically screened. jr8 18:57 Data reviewed: vital signs, nurses notes, lab test result(s), and as a result, [facility]. Data interpreted: Pulse oximetry: on room air is 100 %. Interpretation: normal. Counseling: I had a detailed discussion with the patient and/or guardian regarding: the historical points, exam findings, and any diagnostic results supporting the discharge/admit diagnosis, the need for outpatient follow up, an OB/Gyne specialist, to return to the emergency department if symptoms worsen or persist or if there are any questions or concerns that arise at home. ED course: Reviewed results with patient. Valtrex helped with herpetic lesions. Negative for yeast, BV, Trich, chlamydia, and Gonorrhea. Discussed with patient jaren she needs to finish her Abx and Valtrex. If she still feels burning sensation after that she needs to f/u with gynecology since it seems more to vaginal region. If worse to come back. Patient good with this . 03/26 17:25 Order name: Urine Dipstick--Ancillary (enter results); Complete Time: 18:57 eb 03/26 17:25 Order name: Urine --Ancillary (enter results); Complete Time: 18:57 eb 03/26 17:41 Order name: Urine Microscopic Only jr8 Administered Medications: No medications were administered Disposition: 03/27 05:57 Co-signature as Attending Physician, Lopez Klein MD. rn Disposition: 03/26/20 18:59 Discharged to Home. Impression: Vaginitis, vulvitis and vulvovaginitis in diseases classified elsewhere. - Condition is Stable. - Discharge Instructions: Vaginitis. - Medication Reconciliation Form, Thank You Letter, Antibiotic Education, Prescription Opioid Use form. - Follow up: Zarina Navarrete MD; When: 1 week; Reason: Recheck today's complaints, Continuance of care, Re-evaluation by your physician. - Problem is new. - Symptoms have improved. Signatures: Dispatcher [employer] EDMS Lopez Klein MD MD rn Roszak, Josh, PA PA jr8 Bee Plasencia RN RN jl7 Ita Ronquillo RN RN ca1 Corrections: (The following items were deleted from the chart) 03/26 19:03 18:57 ED course: Discussed with patient jaren she needs to finish her Abx and Valtrex. If jr8 she still feels burning sensation after that she needs to f/u with gynecology since it seems more to vaginal region. If worse to come back. Patient good with this . jr8 19:16 18:59 03/26/2020 18:59 Discharged to Home. Impression: Vaginitis, vulvitis and jlCiara vulvovaginitis in diseases classified elsewhere. Condition is Stable. Forms are Medication Reconciliation Form, Thank You Letter, Antibiotic Education, Prescription Opioid Use. Follow up: Zarina Navarrete; When: 1 week; Reason: Recheck today's complaints, Continuance of care, Re-evaluation by your physician. Problem is new. Symptoms have improved. jr8
--- NOTE | 2020-03-26 19:00 | ER ---
Nurse's Notes [facility] Name: Christine Montalvo Age: 19 yrs Sex: Female : 2000 Arrival Date: 03/26/2020 Time: 16:07 Bed 18 Private MD: Diagnosis: Vaginitis, vulvitis and vulvovaginitis in diseases classified elsewhere Presentation: 03/26 16:32 Chief complaint: Patient states: Has UTI, taking abx x 3 days. Still burning till now ca1 and some blood in urine. Coronavirus screen: Client denies travel out of the [place] in the last 14 days. At this time, the client does not indicate any symptoms associated with coronavirus-19. Ebola Screen: Patient negative for fever greater than or equal to 101.5 degrees Fahrenheit, and additional compatible Ebola Virus Disease symptoms Patient denies exposure to infectious person. Patient denies travel to an Ebola-affected area in the 21 days before illness onset. No symptoms or risks identified at this time. Initial Sepsis Screen: Does the patient meet any 2 criteria? No. Patient's initial sepsis screen is negative. Does the patient have a suspected source of infection? No. Patient's initial sepsis screen is negative. Risk Assessment: Do you want to hurt yourself or someone else? Patient reports no desire to harm self or others. Onset of symptoms was March 26, 2020. 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 - Social history:: Smoking status: Patient denies any tobacco usage or history of. Screenin:00 Abuse screen: Denies threats or abuse. Denies injuries from another. Nutritional jl7 screening: No deficits noted. Tuberculosis screening: No symptoms or risk factors identified. Fall Risk None identified. Assessment: 18:00 General: Appears in no apparent distress. uncomfortable, Behavior is calm, cooperative, jl7 appropriate for age. Pain: Complains of pain in pelvis. Neuro: Level of Consciousness is awake, alert, obeys commands, Oriented to person, place, time, situation. Cardiovascular: Respiratory: Airway is patent Respiratory effort is even, unlabored, Respiratory pattern is regular, symmetrical. : Reports discharge, white. Derm: Skin is pink, warm \T\ dry. Vital Signs: 16:32 BP 114 / 81; Pulse 77; Resp 15 S; Temp 98.5(O); Pulse Ox 100% on R/A; Weight 45.36 kg ca1 (R); Height 5 ft. (152.40 cm) (R); 16:32 Body Mass Index 19.53 (45.36 kg, 152.40 cm) ca1 ED Course: 16:07 Patient arrived in ED. ag5 16:34 Triage completed. ca1 16:34 Arm band placed on right wrist. ca1 17:20 Bee Plasencia RN is Primary Nurse. jl7 17:40 Andrews Perla PA is PHCP. jr8 17:40 Lopez Klein MD is Attending Physician. jr8 18:00 Patient has correct armband on for positive identification. jl7 18:30 Assist provider with pelvic exam: Performed by Andrews ESTRELLA. Patient did not have IV jl7 access during this emergency room visit. 18:59 Zarina Navarrete MD is Referral Physician. jr8 Administered Medications: No medications were administered Outcome: 18:59 Discharge ordered by . jr8 19:16 Discharged to home ambulatory. jl7 19:16 Condition: stable 19:16 Discharge instructions given to patient, Instructed on discharge instructions, follow up and referral plans. Demonstrated understanding of instructions, follow-up care. 19:16 Patient left the ED. jl7 Signatures: Andrews Perla PA PA jrBee Young RN RN jl7 Ita Ronquillo RN RN ca1 Tory Munson ag
[2020-03-26 19:47] LABS: Urine Bacteria 20-50 /HPF (<20); Urine RBC <5 /HPF (NONE SEEN)
[2020-03-26 19:48] VITALS: BP 114/81; TEMP 98.5; O2SAT 100
[2020-03-26 19:51] LABS: Calcium Oxalate Crystals- Ur MODERATE (NONE SEEN); Urine Amorphous Sediment 2+ /HPF (NONE SEEN); Urine Culture Reflex Order REFLEXED; Urine Mucus 4+ /HPF (NONE SEEN)
== END 2020-03-26 19:16 | disposition home or self-care (01) ==
LOC: ER 16:03
DX: N77.1 Vaginitis, vulvitis and vulvovaginitis in diseases classified elsewhere (principal)
CPT/HCPCS: 81003; 81015; 81025; 87086; 87088; 99283